=== PATIENT | female | born 1980 | race American Indian/Alaskan Native ===

== ENCOUNTER 2018-08-25 11:27 | Outpatient (CLI) | payer OTHER | END 2018-08-25 12:17 | disposition home or self-care (01) | LOC: NST 11:27 | DX: Z34.83 Encounter for supervision of other normal pregnancy, third trimester (principal) ==

== ENCOUNTER 2018-10-09 14:58 | Inpatient (IN) | payer OTHER ==
[~2018-10-09] VITALS: Ht 162.6 cm; Wt 92.1 kg
[2018-10-21] MEDS ORDERED: PRENATAL TABLE1 EAC1 PO (03:02)
== END 2018-10-23 12:13 | DRG 807 ==
LOC: OB/GYN 15:30 → LDR 10-21 02:54 → OB/GYN 10-21 11:55
PROVIDERS: ADMIT Obstetrics & Gynecology Maternal & Fetal Medicine
PROC: 10E0XZZ Delivery of Products of Conception, External Approach (ICD-10-PCS; principal; 2018-10-21)
PROC: 4A1HXCZ Monitoring of Products of Conception, Cardiac Rate, External Approach (ICD-10-PCS; 2018-10-21)
PROC: 0UQGXZZ Repair Vagina, External Approach (ICD-10-PCS; 2018-10-21)
DX: O71.4 Obstetric high vaginal laceration alone (principal); Z37.0 Single live birth; Z3A.38 38 weeks gestation of pregnancy

== ENCOUNTER 2019-08-04 08:27 | Emergency (ER) | payer OTHER ==
[~2019-08-04] VITALS: Ht 162.6 cm; Wt 74.8 kg
[~2019-08-04 08:27] MED LIST: PRENATAL TABLE1 EAC1 PO
[2019-08-04] MEDS ORDERED: DICLOFENAC SODI75 MG PO (09:07)
== END 2019-08-04 09:51 | disposition home or self-care (01) ==
LOC: ER 08:27
DX: M54.5 Low back pain (principal)

== ENCOUNTER 2022-06-28 08:19 | Emergency (ER) | payer OTHER ==
[~2022-06-28] VITALS: Ht 162.6 cm; Wt 77.1 kg
[~2022-06-28 08:19] MED LIST changes: +DICLOFENAC SODI75 MG PO
== END 2022-06-28 10:14 | disposition home or self-care (01) ==
LOC: ER 08:19
DX: M62.830 Muscle spasm of back (principal)

== ENCOUNTER 2023-06-24 18:04 | Emergency (ER) | payer OTHER ==
[~2023-06-24] VITALS: Ht 162.6 cm; Wt 73.9 kg
[2023-06-24 22:17] LABS: HEMATOCRIT 37.4 % (36.0-45.00); HEMOGLOBIN 12.5 g/dL (12.0-15.00); MEAN CELL VOLUME 93.5 fL (80.00-100.00); MEAN CORPUSCULAR HEMOGLOBIN 31.3 pg (27.00-32.0); MEAN CORPUSCULAR HGB CONC 33.5 g/dl (32.0-36.0); PLATELET COUNT 212 K/uL (150-450); RED CELL DISTRIBUTION WIDTH 14.1 % (11.5-14.5)
[2023-06-24 22:27] LABS: PH,URINE 7.5 (5.0-8.0); URINE APPEARANCE Clear; URINE BILIRRUBIN Negative (NEGATIVE); URINE BLOOD Large; URINE COLOR Orange; URINE GLUCOSE Negative (NEGATIVE); URINE LEUKOCYTE Large; URINE NITRATE Negative; URINE PROTEIN Trace (NEGATIVE)
[2023-06-24 22:30] LABS: URINE BACTERIA 696.6 uL (0.0-1933); URINE EPITHELIAL CELLS 9.1 uL (0.0-38.8); URINE RBC 2788.1 uL (0.0-20.8); URINE WBC 438.5 uL (0.0-23.2)
== END 2023-06-24 22:40 | disposition home or self-care (01) ==
LOC: ER 18:04
PROVIDERS: General Practice
DX: N30.90 Cystitis, unspecified without hematuria (principal)

== ENCOUNTER 2024-12-22 16:46 | Emergency (ER) | payer OTHER ==
[~2024-12-22] VITALS: Ht 162.6 cm; Wt 73.9 kg
[2024-12-22 18:34] LABS: PH,URINE 6.5 (5.0-8.0); URINE APPEARANCE Clear; URINE BILIRRUBIN Negative (NEGATIVE); URINE BLOOD Moderate; URINE COLOR Yellow; URINE GLUCOSE Negative (NEGATIVE); URINE KETONE Negative (NEGATIVE); URINE LEUKOCYTE Trace; URINE NITRATE Negative; URINE PROTEIN Trace (NEGATIVE); URINE UROBILINOGEN 0.2 E.U./dl
[2024-12-22 18:35] LABS: HEMATOCRIT 39.7 % (36.0-45.00); HEMOGLOBIN 13.5 g/dL (12.0-15.00); MEAN CELL VOLUME 92.7 fL (80.00-100.00); MEAN CORPUSCULAR HEMOGLOBIN 31.6 pg (27.00-32.0); PLATELET COUNT 217 K/uL (150-450); RED BLOOD COUNT 4.28 M/uL (4.00-6.00); RED CELL DISTRIBUTION WIDTH 14.6 % (11.5-14.5)
[2024-12-22 18:38] LABS: URINE BACTERIA 849.4 uL (0.0-1933); URINE CAST 0.29 uL (0.0-1.40); URINE EPITHELIAL CELLS 19.4 uL (0.0-38.8); URINE WBC 5.8 uL (0.0-23.2)
[2024-12-22] MEDS ORDERED: ACETAMINOPHEN 500 MG GEL..CAP PO ONE ×3 (19:36→19:45)
[2024-12-22 20:13] LABS: CALCIUM 9.6 mg/dL (8.5-10.1); CREATININE SERUM 0.62 mg/dL (0.55-1.02); GFR 104.09; POTASSIUM 4.16 mEq/L (3.5-5.1)
== END 2024-12-22 21:41 | disposition home or self-care (01) ==
LOC: ER 16:47
PROVIDERS: General Practice
DX: R53.81 Other malaise (principal); R50.9 Fever, unspecified; Z88.5 Allergy status to narcotic agent